=== PATIENT | female | born 1970 | race Caucasian/White ===

== ENCOUNTER → 2024-12-07 16:04 | Outpatient (BNVA) | payer OTHER, SELFPAY | PROVIDERS: Family Provider Obstetrics & Gynecology; PCP Family Medicine; Visit Provider Internal Medicine Cardiovascular Disease | DX: R07.9 Chest pain, unspecified (principal) | CPT/HCPCS: 93005 ==

== ENCOUNTER 2025-01-09 12:43 | Outpatient (CLI) | payer MEDICAID, SELFPAY | END 2025-01-09 12:44 | disposition home or self-care (01) | LOC: RAD 12:47 | PROVIDERS: Family Provider Obstetrics & Gynecology; PCP Family Medicine; Visit Provider Internal Medicine Cardiovascular Disease | DX: R00.2 Palpitations (principal) | CPT/HCPCS: 93306 ==